=== PATIENT | male | born 1980 | race African-American/Black ===

== ENCOUNTER 2018-01-02 02:03 | Emergency (ER) | payer BC ==
[~2018-01-02] VITALS: Ht 177.8 cm; Wt 84.0 kg
[~2018-01-02 02:03] MED LIST: GLIP10TA10 PO; KEPP500 PO; METF500T PO; SIMV10TA2 PO
[2018-01-02] MEDS ORDERED: SODIUM CHLORIDE 0.9% 1,000 ML IV ONE (02:36)
[2018-01-02] MEDS ORDERED: LEVETIRACETAM 500MG PREMIX 100 ML IV ONE (02:45)
[2018-01-02 03:32] LABS: BASOPHILS % 0.6 % (0.0-2.0); EOSINOPHILS % 1.8 % (0.0-5.0); HEMATOCRIT. 41.9 % (42.0-52.0); HEMOGLOBIN. 13.9 g/dL (14.0-18.0); LYMPHOCYTES % 24.1 % (20.0-50.0); MEAN CORPUSCULAR HEMOGLOBIN 31.9 pg (28.0-32.0); MEAN PLATELET VOLUME 10.2 fl (7.4-10.4); MONOCYTES % 7.6 % (2.0-8.0); NEUTROPHILS % 65.9 % (40.0-76.0); PLATELET 227 x1000/uL (130-400); RED BLOOD CELL COUNT 4.36 mill/uL (4.7-6.1); RED CELL DISTRIBUTION WIDTH 13.3 % (11.6-14.6)
[2018-01-02 03:36] LABS: CHLORIDE 100 mEq/L (98-107)
[2018-01-02 03:40] LABS: ETHANOL BLOOD < 10 mg/dL
[2018-01-02 03:44] LABS: CREATINE KINASE 152 IU/L (39-308)
[2018-01-02 03:46] LABS: CLARITY URINE CLEAR (CLEAR); COLOR URINE YELLOW (YELLOW); KETONES URINE TRACE (NEGATIVE); LEUKOCYTE ESTERASE URINE NEGATIVE (NEGATIVE); NITRITE URINE NEGATIVE (NEGATIVE); OCCULT BLOOD URINE NEGATIVE (NEGATIVE); PROTEIN URINE NEGATIVE (NEGATIVE); SPECIFIC GRAVITY URINE 1.023 (1.005-1.030); UROBILINOGEN URINE 0.2 E.U./dL (0.2-1.0)
[2018-01-02 04:07] LABS: CARBAMAZEPINE < 0.5 ug/mL (4-12); PHENOBARBITAL < 2.1 ug/mL (15.0-40.0)
[2018-01-02 04:11] LABS: VALPROIC ACID < 3.0 ug/mL (50-100)
[2018-01-02] MEDS ORDERED: KETOROLAC 30MG/ML VIAL IV ONE (04:15)
[2018-01-02 04:25] LABS: *AMPHETAMINES SCREEN URINE NEGATIVE (NEGATIVE); *BARBITURATES SCREEN URINE NEGATIVE (NEGATIVE); *BENZODIAZEPINES SCREEN URINE NEGATIVE (NEGATIVE); *COCAINE SCREEN URINE NEGATIVE (NEGATIVE); CANNABINOID URINE SCREEN NEGATIVE (NEGATIVE); METHADONE URINE SCREEN NEGATIVE (NEGATIVE); OPIATES URINE SCREEN NEGATIVE (NEGATIVE); PHENCYCLIDINE URINE SCREEN NEGATIVE (NEGATIVE)
[2018-01-02] MEDS ORDERED: ACETAMINOPHEN 325MG TABLET PO ONE (08:15)
[2018-01-02 08:43] VITALS: BP 110/65
== END 2018-01-02 08:52 | disposition home or self-care (01) ==
LOC: ER 02:30
DX: R56.9 Unspecified convulsions (principal); E11.9 Type 2 diabetes mellitus without complications; Z88.6 Allergy status to analgesic agent; Z79.899 Other long term (current) drug therapy
CPT/HCPCS: 36415; 80053; 80156; 80165; 80184; 80185; 80305; 81003; 82550; 84443; 85025; 93005; 96365; 96375; 99285; G0482; J1885; J7030; Z7610

== ENCOUNTER 2020-04-23 05:55 | Emergency (ER) | payer BC ==
[~2020-04-23] VITALS: Ht 185.4 cm; Wt 91.0 kg
[2020-04-23] MEDS ORDERED: LEVETIRACETAM 1000MG PREMIX 100 ML IV ONE (06:15)
[2020-04-23] MEDS ORDERED: SODIUM CHLORIDE 0.9% 1,000 ML IV ONE (06:15)
[2020-04-23 06:36] LABS: BASOPHILS % 0.8 % (0.0-2.0); HEMOGLOBIN. 14.7 g/dL (14.0-18.0); LYMPHOCYTES % 27.7 % (20.0-50.0); MEAN CORPUSCULAR HEMOGLOBIN 32.1 pg (28.0-32.0); MEAN CORPUSCULAR VOLUME 96.3 fL (80.0-94.0); MEAN PLATELET VOLUME 10.1 fl (7.4-10.4); MONOCYTES % 9.8 % (2.0-8.0); NEUTROPHILS % 59.7 % (40.0-76.0); PLATELET 188 x1000/uL (130-400); RED BLOOD CELL COUNT 4.57 mill/uL (4.7-6.1); RED CELL DISTRIBUTION WIDTH 13.2 % (11.6-14.6)
[2020-04-23 06:41] LABS: CHLORIDE 101 mEq/L (98-107)
[2020-04-23 08:30] VITALS: BP 110/72
== END 2020-04-23 08:58 | disposition home or self-care (01) ==
LOC: ER 05:55
DX: G40.909 Epilepsy, unspecified, not intractable, without status epilepticus (principal); Z91.14 Patient's other noncompliance with medication regimen; E11.9 Type 2 diabetes mellitus without complications; Z79.899 Other long term (current) drug therapy; Z88.6 Allergy status to analgesic agent
CPT/HCPCS: 36415; 80053; 85025; 93005; 96361; 96365; 99284; J1953; J7030

== ENCOUNTER 2021-10-27 01:40 | Emergency (ER) | payer BC, OTHER ==
[~2021-10-27] VITALS: Ht 182.9 cm; Wt 91.0 kg
[2021-10-27] MEDS ORDERED: LEVETIRACETAM 1000MG PREMIX 100 ML IV ONE (02:00)
[2021-10-27] MEDS ORDERED: DIPHENHYDRAMINE 50MG/ML VIAL IV ONE (02:15)
[2021-10-27] MEDS ORDERED: MORPHINE SULFATE 4 MG/ML CPJ (NOT FOR IM USE) IV ONE (02:15)
[2021-10-27] MEDS ORDERED: ONDANSETRON HCL 4MG/2ML INJ IV ONE (02:15)
[2021-10-27 02:21] LABS: BASOPHILS % 0.5 % (0.0-2.0); HEMATOCRIT. 43.9 % (42.0-52.0); HEMOGLOBIN. 14.3 g/dL (14.0-18.0); LYMPHOCYTES % 40.3 % (20.0-50.0); MEAN CORPUSCULAR HEMOGLOBIN 31.8 pg (28.0-32.0); MEAN CORPUSCULAR VOLUME 97.5 fL (80.0-94.0); MEAN PLATELET VOLUME 10.3 fl (7.4-10.4); NEUTROPHILS % 47.2 % (40.0-76.0); PLATELET 238 x1000/uL (130-400); RED CELL DISTRIBUTION WIDTH 13.6 % (11.6-14.6)
[2021-10-27 02:29] LABS: CHLORIDE 100 mEq/L (98-107)
[2021-10-27 04:20] VITALS: BP 111/70
== END 2021-10-27 04:59 | disposition home or self-care (01) ==
LOC: ER 01:40
DX: G40.909 Epilepsy, unspecified, not intractable, without status epilepticus (principal); E11.9 Type 2 diabetes mellitus without complications; Z79.84 Long term (current) use of oral hypoglycemic drugs; Z88.5 Allergy status to narcotic agent
CPT/HCPCS: 36415; 80053; 85025; 96365; 96375; 99284; J1200; J1953; J2270; J2405